=== PATIENT | male | born 1935 | race Caucasian/White ===

== ENCOUNTER 2018-02-06 08:07 | Emergency (ER) | payer MEDICARE, BC ==
[~2018-02-06] VITALS: Ht 185.4 cm; Wt 105.0 kg
[~2018-02-06 08:07] MED LIST: ALLO300T8 PO; BACL10TA PO; CLOP75TA35 PO; FLEC50TA PO; HYDR-4353 PO; OMEP20TA5 PO; TEMA30CA5 PO
[2018-02-06 09:14] LABS: BASOPHILS # (AUTO) 0.1 X10'3 (0-0.2); BASOPHILS % (AUTO) 0.9 % (0-1); EOSINOPHILS # (AUTO) 0.3 X10'3 (0-0.9); HEMATOCRIT 39.7 % (42.0-52.0); HEMOGLOBIN 13.3 g/dl (14.0-17.9); LYMPHOCYTES # (AUTO) 1.4 X10'3 (1.1-4.8); LYMPHOCYTES % (AUTO) 21.8 % (21-51); MEAN CORPUSCULAR HEMOGLOBIN 30.2 PG (27.0-31.0); MEAN CORPUSCULAR HGB CONC 33.4 % (33.0-36.5); MEAN CORPUSCULAR VOLUME 90.2 FL (78-98); MEAN PLATELET VOLUME 8.5 FL (7.4-10.4); MONOCYTES # (AUTO) 0.4 X10'3 (0-0.9); MONOCYTES % (AUTO) 6.8 % (2-12); NEUTROPHILS # (AUTO) 4.1 X10'3 (1.8-7.7); NEUTROPHILS % (AUTO) 65.5 % (42-75); PLATELET COUNT 247 X10'3 (140-440); RED CELL DISTRIBUTION WIDTH 14.3 % (11.5-14.5); WHITE BLOOD COUNT 6.3 X10'3 (4.5-11.0)
[2018-02-06 09:27] LABS: ALANINE AMINOTRANSFERASE 29 U/L (12-78); ALBUMIN 3.5 G/DL (3.4-5.0); ALBUMIN/GLOBULIN RATIO 1.2 (1.1-1.5); ALKALINE PHOSPHATASE 106 IU/L (46-116); ANION GAP 6 (8-16); ASPARTATE AMINO TRANSFERASE 19 U/L (10-37); BILIRUBIN,TOTAL 0.3 MG/DL (0.1-1.0); BLOOD UREA NITROGEN 16 MG/DL (7-18); BUN/CREATININE RATIO 16.2 (5.4-32.0); CALCIUM 9.3 MG/DL (8.5-10.1); CHLORIDE 105 MMOL/L (99-107); CREATININE 0.99 MG/DL (0.60-1.10); GLUCOSE 98 MG/DL (70-104); MAGNESIUM 1.8 MG/DL (1.5-2.4); POTASSIUM 4.2 MMOL/L (3.5-5.1); SODIUM 138 MMOL/L (135-145); TOTAL CARBON DIOXIDE 27.2 MMOL/L (24-32); TOTAL PROTEIN 6.5 G/DL (6.4-8.2); eGFR 73 ML/MIN
[2018-02-06 09:43] VITALS: BP 156/73
== END 2018-02-06 10:57 | disposition home or self-care (01) ==
LOC: ER 08:07
DX: R20.2 Paresthesia of skin (principal); F41.9 Anxiety disorder, unspecified; K21.9 Gastro-esophageal reflux disease without esophagitis; G89.29 Other chronic pain; Z86.73 Personal history of transient ischemic attack (TIA), and cerebral infarction without residual deficits; Z95.0 Presence of cardiac pacemaker; Z98.890 Other specified postprocedural states; Z60.2 Problems related to living alone; Z79.01 Long term (current) use of anticoagulants; Z79.899 Other long term (current) drug therapy
CPT/HCPCS: 36415; 71045; 80053; 83735; 84484; 85025; 93005; 99284

== ENCOUNTER 2018-02-13 09:34 | Emergency (ER) | payer MEDICARE, BC ==
[~2018-02-13] VITALS: Ht 185.4 cm; Wt 89.0 kg
[2018-02-13 09:42] VITALS: BP 162/74
== END 2018-02-13 10:15 | disposition home or self-care (01) ==
LOC: ER 09:35
DX: T39.011A Poisoning by aspirin, accidental (unintentional), initial encounter (principal); R53.1 Weakness; R20.2 Paresthesia of skin; K21.9 Gastro-esophageal reflux disease without esophagitis; G89.29 Other chronic pain; Z86.73 Personal history of transient ischemic attack (TIA), and cerebral infarction without residual deficits; Z95.0 Presence of cardiac pacemaker; Z98.890 Other specified postprocedural states; Z79.899 Other long term (current) drug therapy; Z60.2 Problems related to living alone; Y92.89 Other specified places as the place of occurrence of the external cause
CPT/HCPCS: 99281

== ENCOUNTER 2019-09-26 09:13 | Inpatient (IN) | payer MEDICARE, BC ==
[2019-09-18 11:33] LABS: BASOPHILS # (AUTO) 0.1 X10'3 (0-0.2); BASOPHILS % (AUTO) 0.9 % (0-1); EOSINOPHILS # (AUTO) 0.2 X10'3 (0-0.9); EOSINOPHILS % (AUTO) 2.4 % (0-6); LYMPHOCYTES # (AUTO) 1.2 X10'3 (1.1-4.8); LYMPHOCYTES % (AUTO) 16.1 % (21-51); MEAN CORPUSCULAR HEMOGLOBIN 29.9 PG (27.0-31.0); MEAN CORPUSCULAR HGB CONC 33.9 g/dL (33.0-36.5); MEAN PLATELET VOLUME 8.1 FL (7.4-10.4); MONOCYTES # (AUTO) 0.5 X10'3 (0-0.9); MONOCYTES % (AUTO) 6.3 % (2-12); NEUTROPHILS # (AUTO) 5.7 X10'3 (1.8-7.7); NEUTROPHILS % (AUTO) 74.3 % (42-75); PRE OP HEMATOCRIT 40.8 % (42.0-52.0); PRE OP HEMOGLOBIN 13.9 g/dL (14.0-17.9); PRE OP PLATELET COUNT 254 X10'3 (140-440); RED BLOOD COUNT 4.64 X10'6 (4.70-6.10); RED CELL DISTRIBUTION WIDTH 14.1 % (11.5-14.5)
[2019-09-18 11:46] LABS: PRE OP PROTIME 10.3 SECONDS (9.0-12.0)
[2019-09-18 11:50] LABS: ALBUMIN 3.4 G/DL (3.4-5.0); ALBUMIN/GLOBULIN RATIO 0.9 (1.1-1.5); ALKALINE PHOSPHATASE 104 IU/L (46-116); BLOOD UREA NITROGEN 12 MG/DL (7-18); BUN/CREATININE RATIO 10.6 (5.4-32.0); CALCIUM 9.2 MG/DL (8.5-10.1); CHLORIDE 109 MMOL/L (99-107); CREATININE 1.13 MG/DL (0.60-1.10); PRE OP ALT 19 U/L (30-65); PRE OP ANION GAP 8 (8-16); PRE OP AST 15 U/L (10-37); PRE OP BILIRUB, TOTAL 0.5 MG/DL (0.0-1.0); PRE OP GLUCOSE 89 MG/DL (70-104); PRE OP POTASSIUM 4.6 MMOL/L (3.4-5.1); PRE OP SODIUM 144 MMOL/L (135-145); TOTAL CARBON DIOXIDE 27.5 MMOL/L (24-32); eGFR 62 ML/MIN
[~2019-09-26] VITALS: Ht 182.9 cm; Wt 103.9 kg
[2019-09-26] VITALS (18 sets, daily range): BP systolic 96–164; BP diastolic 53–84
[~2019-09-26 09:13] MED LIST changes: -ALLO300T8 PO; +ASPI-1094 PO; -BACL10TA PO; -CLOP75TA35 PO; -HYDR-4353 PO; -OMEP20TA5 PO; +VANCOMYCIN 1,500MG inj. 1,500 MG in normal saline 500ml IV soln 500 ML IV ONE; +ceFAZolin 2gm in dextrose, iso 50 ML IV ONE; +famotidine 20mg tablet PO ONE; +ringers solution, lacted 1,000 ML IV SCH; +tranexamic acid inj. 1,000 MG in normal saline 100 ML IV ONE
[2019-09-26] MEDS ORDERED: ketorolac trometh. 30mg/ml inj. ONE (14:25)
[2019-09-26] MEDS ORDERED: ROPIVAcaine 0.5% (5mg/ml) 30ml vial ONE ×2 (14:25→14:51)
[2019-09-26] MEDS ORDERED: fentaNYL/PF 50MCG/1 ML 2ML syringe ONE (14:50)
[2019-09-26] MEDS ORDERED: propofol inj 20 ML IV ONE (14:50)
[2019-09-26] MEDS ORDERED: MIDAZolam 5mg/5ml vial ONE (14:50)
[2019-09-26] MEDS ORDERED: sevoflurane 250ml liquid IH ONE (14:57)
[2019-09-26] MEDS ORDERED: tranexamic acid inj. 1,000 MG in normal saline 100 ML IV ONE (15:45)
[2019-09-26] MEDS ORDERED: ringers solution, lacted 1,000 ML IV SCH (16:17)
[2019-09-26] MEDS ORDERED: morphine 4 MG/ML inj SYRINge IV PRN (16:20)
[2019-09-26] MEDS ORDERED: ROPIVAcaine 0.2% (10 MG/5 ML) BOLUS INJECTION INTERSCALE PRN (16:20)
[2019-09-26] MEDS ORDERED: morphine 2 MG/ML inj. syringe IV PRN (16:20)
[2019-09-26] MEDS ORDERED: proCHLORperazine 10 MG/2 ml inj IV PRN (16:20)
[2019-09-26] MEDS ORDERED: meperidine/PF 25mg/ml syringe IV PRN ×3 (16:20)
[2019-09-26] MEDS ORDERED: ondansetron/PF 4mg/2ml inj IV PRN ×2 (16:20→17:55)
--- NOTE | 2019-09-26 17:35 | NUR ---
Received from OR via BED, accompanied by Anesthesiologist BELKIS and report given by Anesthesiolgist. PT SLEEPY, OXYGENATING WELL ON 10 LPM 02 VIA MASK, NO RESP DISTRESS NOTED. PT DENIES NAUSEA OR PAIN AT THIS TIME, HAS R ISB AND ON-Q INFUSION IS HOOKED UP PER ORDERS. DSG TO R SHOULDER CDI. SHOULDER WRAP AND POWDER PACK IN PLACE. RUE IN SLING. RADIAL PULSES PALP. SCDS ON, VSS.
[2019-09-26] MEDS ORDERED: TEMAZEPAM 15 MG PO PRN (17:55)
[2019-09-26] MEDS ORDERED: HYDROmorphone inj. 0.5 MG/0.5 ML DISP.SYRIN IV PRN (17:55)
[2019-09-26] MEDS ORDERED: magnesium hydroxide 30ml (MOM) UD suspension PO PRN (17:55)
[2019-09-26] MEDS ORDERED: bisacodyl 10mg suppository rectal RC PRN (17:55)
[2019-09-26] MEDS ORDERED: HYDROmorphone 1 mg/ml syringe IV PRN (17:55)
[2019-09-26] MEDS ORDERED: acetaminophen 325mg tablet PO PRN (17:55)
[2019-09-26] MEDS ORDERED: diphenhydrAMINE 25mg capsule PO PRN ×2 (17:55)
[2019-09-26] MEDS: ROPIVAcaine 0.2%/PF PUMP/bolus 550 ML INTERSCALE SCH (18:17)
--- NOTE | 2019-09-26 19:15 | NUR ---
Report called to receiving nurse. Transferred via BED Belongings WITH PT, FULL DENTURES, GLASSES, 2 BAGS OF CLOTHING. VSS. TOLERATING PO FLUIDS WELL. NO C/O PAIN. TRANSFERRED TO ORTHO IN STABLE CONDITION. Special Issues communicated to receiving nurse.
--- NOTE | 2019-09-26 19:15 | NUR ---
RECEIVED PATIENT INTO ROOM 4007 AND ASSUMED PATIENT CARE. IN STABLE CONDITION.
[2019-09-26] MEDS: acetaminophen 325mg tablet PO SCH (20:00)
[2019-09-26] MEDS ORDERED: vancomycin/NS 1 GM ADD-VANTAGE 250 ML IV SCH (20:00)
[2019-09-26] MEDS ORDERED: temazepam 15mg capsule PO PRN (20:16)
[2019-09-26] MEDS ORDERED: tranexamic acid 1gm/0.7% sal. 100 ML IV ONE (21:00)
[2019-09-26] MEDS: flecainide 50mg tablet PO SCH (22:05)
[2019-09-26] MEDS: sennosides 8.6mg tablet PO SCH (22:05)
[2019-09-26] MEDS: potassium cl 20mEq in 1/2 NS 1,000 ML IV SCH (22:13)
[2019-09-27] MEDS: ceFAZolin 1GM/D5W- ADD-VANTAGE 50 ML IV SCH ×2 (00:53→07:35)
[2019-09-27] MEDS: acetaminophen 325mg tablet PO SCH ×5 (02:00→20:00)
[2019-09-27] MEDS: potassium cl 20mEq in 1/2 NS 1,000 ML IV SCH (05:25)
[2019-09-27 06:00] VITALS: BP 134/52
--- NOTE | 2019-09-27 06:00 | NUR ---
Patient in room ORTHO 4007. I have received report from Marti URIAS and had the opportunity to ask questions and assume patient care.
--- NOTE | 2019-09-27 06:34 | NUR ---
REPORT GIVEN TO YANA URIAS
[2019-09-27 06:47] LABS: BASOPHILS % (AUTO) 0.4 % (0-1); EOSINOPHILS # (AUTO) 0.1 X10'3 (0-0.9); EOSINOPHILS % (AUTO) 0.9 % (0-6); HEMATOCRIT 38.5 % (42.0-52.0); HEMOGLOBIN 12.9 g/dl (14.0-17.9); LYMPHOCYTES # (AUTO) 0.9 X10'3 (1.1-4.8); LYMPHOCYTES % (AUTO) 9.9 % (21-51); MEAN CORPUSCULAR HEMOGLOBIN 29.7 PG (27.0-31.0); MEAN CORPUSCULAR HGB CONC 33.5 g/dL (33.0-36.5); MEAN CORPUSCULAR VOLUME 88.9 FL (78-98); MEAN PLATELET VOLUME 8.3 FL (7.4-10.4); MONOCYTES # (AUTO) 0.6 X10'3 (0-0.9); MONOCYTES % (AUTO) 6.6 % (2-12); NEUTROPHILS # (AUTO) 7.8 X10'3 (1.8-7.7); NEUTROPHILS % (AUTO) 82.2 % (42-75); PLATELET COUNT 182 X10'3 (140-440); RED BLOOD COUNT 4.33 X10'6 (4.70-6.10); RED CELL DISTRIBUTION WIDTH 13.8 % (11.5-14.5); WHITE BLOOD COUNT 9.5 X10'3 (4.5-11.0)
[2019-09-27 07:03] LABS: ANION GAP 7 (8-16); CHLORIDE 109 MMOL/L (99-107); POTASSIUM 4.4 MMOL/L (3.5-5.1); SODIUM 142 MMOL/L (135-145); TOTAL CARBON DIOXIDE 25.9 MMOL/L (24-32)
[2019-09-27] MEDS: aspirin 325mg tablet, delayed-release (Ecotrin) PO SCH (07:33)
[2019-09-27] MEDS: oxyCODONE IR 5mg (immed. release) tablet PO PRN ×4 (07:34→22:27)
[2019-09-27] MEDS: flecainide 50mg tablet PO SCH ×2 (07:34→19:21)
[2019-09-27 10:00] VITALS: BP 138/53
[2019-09-27 14:00] VITALS: BP 123/67
--- NOTE | 2019-09-27 15:38 | NUR ---
Joint replacement Consult: Pt seen by RD for written/verbal high protein ed w/ RD contact information provided. Pt is agreeable to [facility]INE[facility] for wound healing needs; SINGLE ENDING MACHINE OPERATOR notified. PO 75% avg initial regular diet meals. Will continue to monitor. Addendum: 09/27/19 at [address] Amended: Links added.
[2019-09-27 18:00] VITALS: BP 116/56
--- NOTE | 2019-09-27 18:15 | NUR ---
Patient in room ORTHO 4007. I have received report from Wen URIAS and had the opportunity to ask questions and assume patient care.
[2019-09-27] MEDS: sennosides 8.6mg tablet PO SCH (19:21)
[2019-09-27 22:11] VITALS: BP 141/60
[2019-09-28] MEDS: acetaminophen 325mg tablet PO SCH ×3 (02:00→14:00)
--- NOTE | 2019-09-28 02:40 | NUR ---
Problems reprioritized. Patient report given, questions answered & plan of care reviewed with Rosalia URIAS.
[2019-09-28 06:00] VITALS: BP 121/60
[2019-09-28 06:10] LABS: BASOPHILS % (AUTO) 0.4 % (0-1); EOSINOPHILS # (AUTO) 0.1 X10'3 (0-0.9); HEMATOCRIT 35.6 % (42.0-52.0); HEMOGLOBIN 12.1 g/dl (14.0-17.9); LYMPHOCYTES % (AUTO) 10.7 % (21-51); MEAN CORPUSCULAR HEMOGLOBIN 30.2 PG (27.0-31.0); MEAN CORPUSCULAR VOLUME 88.8 FL (78-98); MEAN PLATELET VOLUME 8.3 FL (7.4-10.4); MONOCYTES # (AUTO) 0.9 X10'3 (0-0.9); MONOCYTES % (AUTO) 9.1 % (2-12); NEUTROPHILS # (AUTO) 7.5 X10'3 (1.8-7.7); NEUTROPHILS % (AUTO) 78.8 % (42-75); PLATELET COUNT 187 X10'3 (140-440); WHITE BLOOD COUNT 9.5 X10'3 (4.5-11.0)
--- NOTE | 2019-09-28 06:32 | NUR ---
Patient in room ORTHO 4007. I have received report from Rosalia URIAS and had the opportunity to ask questions and assume patient care.
[2019-09-28] MEDS: aspirin 325mg tablet, delayed-release (Ecotrin) PO SCH (07:29)
[2019-09-28] MEDS: flecainide 50mg tablet PO SCH ×2 (07:29→20:50)
[2019-09-28] MEDS: oxyCODONE IR 5mg (immed. release) tablet PO PRN ×2 (07:29→17:14)
[2019-09-28 10:00] VITALS: BP 121/63
[2019-09-28] MEDS: JUVEN Smoothie Arginine/Glut./Ca2+Bmb (Juven 19.3pkt) 240ml cup PO SCH ×2 (12:30→17:30)
[2019-09-28] MEDS ORDERED: ondansetron 4mg rapidly disintigrating tab PO PRN (13:00)
[2019-09-28] MEDS: ROPIVAcaine 0.2%/PF PUMP/bolus 550 ML INTERSCALE SCH ×2 (17:15→19:01)
[2019-09-28] MEDS ORDERED: acetaminophen 325mg tablet PO PRN (17:55)
[2019-09-28 18:00] VITALS: BP 128/53
--- NOTE | 2019-09-28 18:14 | NUR ---
Problems reprioritized. Patient report given, questions answered & plan of care reviewed with Soto URIAS.
--- NOTE | 2019-09-28 18:50 | NUR ---
Patient in room ORTHO 4007. I have received report from BRIDGETT Carver and had the opportunity to ask questions and assume patient care.
[2019-09-28] MEDS: sennosides 8.6mg tablet PO SCH (20:51)
[2019-09-28 23:06] VITALS: BP 132/71
[2019-09-29] MEDS: oxyCODONE IR 5mg (immed. release) tablet PO PRN ×2 (00:02→08:46)
[2019-09-29 06:00] VITALS: BP 123/78
[2019-09-29 06:27] LABS: BASOPHILS % (AUTO) 0.5 % (0-1); EOSINOPHILS # (AUTO) 0.2 X10'3 (0-0.9); EOSINOPHILS % (AUTO) 2.5 % (0-6); HEMATOCRIT 33.3 % (42.0-52.0); HEMOGLOBIN 11.4 g/dl (14.0-17.9); LYMPHOCYTES # (AUTO) 1.2 X10'3 (1.1-4.8); LYMPHOCYTES % (AUTO) 13.6 % (21-51); MEAN CORPUSCULAR HEMOGLOBIN 30.1 PG (27.0-31.0); MEAN CORPUSCULAR HGB CONC 34.1 g/dL (33.0-36.5); MEAN CORPUSCULAR VOLUME 88.4 FL (78-98); MEAN PLATELET VOLUME 8.5 FL (7.4-10.4); MONOCYTES # (AUTO) 0.8 X10'3 (0-0.9); MONOCYTES % (AUTO) 9.3 % (2-12); NEUTROPHILS # (AUTO) 6.3 X10'3 (1.8-7.7); NEUTROPHILS % (AUTO) 74.1 % (42-75); PLATELET COUNT 184 X10'3 (140-440); RED BLOOD COUNT 3.77 X10'6 (4.70-6.10); RED CELL DISTRIBUTION WIDTH 14.1 % (11.5-14.5); WHITE BLOOD COUNT 8.5 X10'3 (4.5-11.0)
--- NOTE | 2019-09-29 06:35 | NUR ---
Problems reprioritized. Patient report given, questions answered & plan of care reviewed with BRIDGETT Beach.
--- NOTE | 2019-09-29 06:36 | NUR ---
Patient in room ORTHO 4007. I have received report from BRIDGETT Valera and had the opportunity to ask questions and assume patient care.
[2019-09-29] MEDS: flecainide 50mg tablet PO SCH (07:32)
[2019-09-29] MEDS: aspirin 325mg tablet, delayed-release (Ecotrin) PO SCH (07:33)
[2019-09-29 09:35] VITALS: BP 146/56
--- NOTE | 2019-09-29 12:44 | NUR ---
[facility] picked up patient to go to [facility]. Stable for transfer per Dr Gaytan. Called report to BRIDGETT Bruno. Left with belongings in a wheel-chair.
== END 2019-09-29 12:41 | DRG 483 ==
LOC: PAS IN 09:13 → UNDOADMIN 09:13 → EDSTATUS 12:15 → PAS IN 17:51 → UNDOADMIN 17:51 → ORTHO 4S 17:51 → PAS IN 19:15
PROVIDERS: ADMIT Orthopaedic Surgery; ATTEND Orthopaedic Surgery
PROC: 0RRJ00Z Replacement of Right Shoulder Joint with Reverse Ball and Socket Synthetic Substitute, Open Approach (ICD-10-PCS; 2019-09-26)
PROC: 3E0T3BZ Introduction of Anesthetic Agent into Peripheral Nerves and Plexi, Percutaneous Approach (ICD-10-PCS; 2019-09-26)
PROC: 0LS30ZZ Reposition Right Upper Arm Tendon, Open Approach (ICD-10-PCS; principal; 2019-09-26 14:57)
DX: M19.011 Primary osteoarthritis, right shoulder (principal); F84.5 Asperger's syndrome; D62 Acute posthemorrhagic anemia; M75.121 Complete rotator cuff tear or rupture of right shoulder, not specified as traumatic; M65.9 Synovitis and tenosynovitis, unspecified; N40.0 Benign prostatic hyperplasia without lower urinary tract symptoms; I49.9 Cardiac arrhythmia, unspecified; G47.00 Insomnia, unspecified; M75.100 Unspecified rotator cuff tear or rupture of unspecified shoulder, not specified as traumatic; Z85.46 Personal history of malignant neoplasm of prostate; Z79.899 Other long term (current) drug therapy; Z95.0 Presence of cardiac pacemaker; Z98.1 Arthrodesis status; Z86.73 Personal history of transient ischemic attack (TIA), and cerebral infarction without residual deficits
CPT/HCPCS: 36415; 71046; 80051; 80053; 82948; 85025; 85610; 85730; 87081; 97110; 97116; 97161; 97530; A4565; A4618; A7000; C1776; G0378; J0690; J1885; J2250; J2704; J2795; J3010; J3370; J3480; J7040; J7120

== ENCOUNTER 2024-08-01 15:46 | Inpatient (IN) | payer MEDICARE, BC ==
[~2024-08-01] VITALS: Ht 182.9 cm; Wt 104.3 kg
[~2024-08-01 15:46] MED LIST changes: -VANCOMYCIN 1,500MG inj. 1,500 MG in normal saline 500ml IV soln 500 ML IV ONE; -ceFAZolin 2gm in dextrose, iso 50 ML IV ONE; -famotidine 20mg tablet PO ONE; -ringers solution, lacted 1,000 ML IV SCH; -tranexamic acid inj. 1,000 MG in normal saline 100 ML IV ONE
--- NOTE | 2024-08-01 18:13 | Physician Documentation ---
History of Present Illness ~ Chief Complaint: Seizure Stated Complaint: NEURO CONSULT Time Seen by MD: 18:03 Primary Medical Doctor: KIERRA GALLEGOS Patient presents to the emergency room as a transfer [facility] for new onset of seizure. History of dementia. He was seen by neurologist at the time who felt he needed an MRI however their facility did not have an MRI compatible MRI machine. He is a full code. Labs thus far reassuring however urine was not obtained. Currently the patient is pleasantly demented and not helpful with the history. Per records sent there was a very distant history of seizure many years ago. He does not take seizure medications. Medication Reconciliation Allergies: Coded Allergies: No Known Allergies (Unverified , 08/01/24) Scheduled Aspirin (Ecotrin), 325 MG PO DAILY, (Reported) Flecainide Acetate (Flecainide Acetate), 1 TAB PO BID, (Reported) Scheduled PRN Temazepam* (Restoril*), 15 MG PO HS PRN for PRN, (Reported) Past Medical History Past Medical History: CVA/TIA/Stroke, GERD, Peptic Ulcer Disease, Chronic Back Pain, Depression Past Surgical History: orthopedic surgeries, pacemaker Alcohol Use: None Drug Use: none Lives with: Alone Lives In: Home Occupation: retired Review of Systems ROS All review of systems negative except as per HPI Physical Exam Vital Signs: Temperature: 97.6, Source: Temporal, Heart Rate: 60, Respiratory Rate: 15, BP: 137/62, Pulse Oximetry: 100, Weight: 104.300 Physical Exam General: Patient is awake, alert, cooperative and pleasantly demented Head: Normocephalic and atraumatic. Eyes: Conjunctival normal. EOMI. PERRL. ENT: Mucous membranes moist. Neck: Supple, trachea is midline. Chest: Clear to auscultation bilaterally without rales, rhonchi, or wheezes. There is no accessory muscle use or retractions. Cardiac: RRR without murmurs, gallops, or rubs. Neuro: Cranial nerves II-XII grossly intact. No focal neuro deficits. Progress Results/Orders Results/Orders Orders - SHER FALLON MD Page Hospitalist (08/01/24 18:48) Fill Out Med Reconciliation (08/01/24 18:48) Vital Signs 08/01/24 08/01/2408/01/25 16:12 16:50 18:24 Temp 97.6 Pulse 60 60 Resp 18 15 15 B/P (MAP) 142/72 137/62 (87) Pulse Ox 96 100 Laboratory Tests Test 08/01/24 18:06 08/01/24 18:18 Urine Specimen Description Urinal Urine Color Yellow Urine Clarity Slightly cloudy Urine pH 6.5 Urine Specific [place] <=1.005 Urine Protein Negative Urine Glucose (UA) Negative Urine Ketones Negative Urine Occult Blood Negative Urine Nitrite Negative Urine Bilirubin Negative Urine Urobilinogen 0.2 Urine Leukocyte Esterase Negative Urine RBC 0-2 Urine WBC None seen Urine Squamous Epithelial Cells Few Urine Amorphous Phosphates 3+ Urine Bacteria 2+ Urine Culture Indicated Not ind Volume Urine Centrifuged 10 ml Urine Comment White Blood Count 8.9 Red Blood Count 4.36 L Hemoglobin 12.7 L Hematocrit 37.7 L Mean Corpuscular Volume 86.4 Mean Corpuscular Hemoglobin 29.1 Mean Corpuscular Hemoglobin Concent 33.6 Red Cell Distribution Width 15.3 H Platelet Count 239 Mean Platelet Volume 8.5 Neutrophils (%) (Auto) 67.9 Lymphocytes (%) (Auto) 22.3 Monocytes (%) (Auto) 7.1 Eosinophils (%) (Auto) 1.8 Basophils (%) (Auto) 0.9 Neutrophils # (Auto) 6.0 Lymphocytes # (Auto) 2.0 Monocytes # (Auto) 0.6 Eosinophils # (Auto) 0.2 Basophils # (Auto) 0.1 CBC Comment Medical Decision Making Findings Patient presents to the emergency room as a transfer for new onset seizure. Patient will requiring MRI. We will admit for further investigation. No seiz ure activity in our emergency room. Departure Admitted to Inpatient Unit: yes, to hospitalist Impression: Primary Impression: Convulsions Condition: Fair Referrals: NO PRIMARY CARE PROVIDER (PCP) Signature Scribe Signature: No scribe Attestation: The note accurately reflects work and decisions made by me.Sher Fallon MD 08/01/24 18:44 SHER FALLON MD August 01, 2024 18:12
[2024-08-01 18:17] LABS: BILIRUBIN,URINE NEGATIVE (Neg); CLARITY,URINE SLIGHTLY CLOUDY (Clear); COLOR,URINE YELLOW (Yellow); GLUCOSE, URINE NEGATIVE (Neg); KETONES,URINE NEGATIVE (Neg); LEUKOCYTE ESTERASE ,URINE NEGATIVE (Neg); NITRITES, URINE NEGATIVE (Neg); OCCULT BLOOD,URINE NEGATIVE (Neg); PH,URINE 6.5 (4.8-8.0); PROTEIN,URINE NEGATIVE (Neg); UROBILINOGEN,URINE 0.2 E.U/dL (0.2-1.0)
[2024-08-01 18:20] LABS: UA COLLECTION TYPE URINAL
[2024-08-01 18:29] LABS: BACTERIA,URINE 2+ /HPF (Neg); RBC,URINE 0-2 /HPF (0-2); WBC,URINE NONE SEEN /HPF (0-4)
[2024-08-01 18:30] LABS: AMORPHOUS PHOSPHATES 3+; SQUAMOUS EPITHELIAL CELL,UR FEW /LPF (FEW)
[2024-08-01 18:34] LABS: BASOPHILS # (AUTO) 0.1 X10'3 (0-0.2); BASOPHILS % (AUTO) 0.9 % (0-1); EOSINOPHILS # (AUTO) 0.2 X10'3 (0-0.9); EOSINOPHILS % (AUTO) 1.8 % (0-6); HEMATOCRIT 37.7 % (42.0-52.0); HEMOGLOBIN 12.7 g/dl (14.0-17.9); LYMPHOCYTES % (AUTO) 22.3 % (21-51); MEAN CORPUSCULAR HEMOGLOBIN 29.1 PG (27.0-31.0); MEAN CORPUSCULAR HGB CONC 33.6 g/dL (33.0-36.5); MEAN CORPUSCULAR VOLUME 86.4 FL (78-98); MEAN PLATELET VOLUME 8.5 FL (7.4-10.4); MONOCYTES # (AUTO) 0.6 X10'3 (0-0.9); MONOCYTES % (AUTO) 7.1 % (2-12); NEUTROPHILS % (AUTO) 67.9 % (42-75); PLATELET COUNT 239 X10'3 (140-440); RED BLOOD COUNT 4.36 X10'6 (4.70-6.10); RED CELL DISTRIBUTION WIDTH 15.3 % (11.5-14.5); WHITE BLOOD COUNT 8.9 X10'3 (4.5-11.0)
[2024-08-01] MEDS ORDERED: METO-395 PO (20:36)
[2024-08-01] MEDS ORDERED: ACET-1015 PO (20:36)
[2024-08-01] MEDS ORDERED: ASPI81TA52 PO (20:36)
[2024-08-01] MEDS ORDERED: LORA-268 PO (20:36)
[2024-08-01] MEDS ORDERED: HYDR-3686 PO (20:36)
[2024-08-01] MEDS ORDERED: FURO-150 PO (20:36)
[2024-08-01] MEDS ORDERED: DONE-46 PO (20:36)
[2024-08-01] MEDS ORDERED: BISA10SU11 RC (20:36)
[2024-08-01] MEDS ORDERED: APIX5TAB3 PO (20:36)
[2024-08-01] MEDS ORDERED: ATOR40TA PO (20:36)
[2024-08-01] MEDS ORDERED: magnesium sulf-water 4G/100mL 100 ML IV PRN (21:25)
[2024-08-01] MEDS ORDERED: magnesium Cl slow-release 64mg tablet PO PRN (21:25)
[2024-08-01] MEDS ORDERED: ondansetron/PF 4mg/2ml inj IV PRN (21:25)
[2024-08-01] MEDS ORDERED: mag hydrox/Alum hydrox/simeth 30ml oral suspension PO PRN (21:25)
[2024-08-01] MEDS ORDERED: potassium Cl 40MEQ/1/2NS 520ml 520 ML IV PRN (21:25)
[2024-08-01] MEDS ORDERED: acetaminophen 325mg tablet PO PRN (21:25)
[2024-08-01] MEDS ORDERED: magnesium hydroxide 30ml (MOM) UD suspension PO PRN (21:25)
[2024-08-01] MEDS ORDERED: magnesium sulf-water 2g/50mL 50 ML IV PRN (21:25)
[2024-08-01] MEDS ORDERED: potassium Cl 20 mEq SR tablet PO PRN ×2 (21:25)
--- NOTE | 2024-08-01 21:41 | HISTORY AND PHYSICAL-Residence ---
History & Physical Providers to CC Resident Creating Document: EUGENIE CHAMPION, RES ~ History of Present Illness Primary Medical Doctor: KIERRA Reason for Admit\Complaint: Seizures History of Present Illness The patient is an 88-year-old male with past medical history of diabetes mellitus, AFib, pacemaker, CHF, dementia, prostate cancer, who is a resident of long-term facility, was transferred from [facility] for the requirement of MRI. The patient has dementia and unable to give any sort of history. As per the records from [facility], patient is normally alert and oriented x2, arrived to the ED with A&O x 0. SNF staff reported that they were called into his room for seizure-like activity. It was also reported that the patient had an episode of urinary incontinence during the seizure-like episode. No known trauma or falls, no reported fevers or headache or neck pain. Labs at [facility]: WBC 8.7, hemoglobin 12.3, platelets 223, sodium 139, potassium 4.6, bicarb 25, glucose 82, creatinine 0.90, BUN 23, calcium 8.7, magnesium 1.9, normal AST ALT and ALP, lactic acid 3.20, TSH 8.07, free T4 0.76, CK 69, ammonia 33 Normal troponins Elevated PT 15.3 Imaging: X-ray chest- No acute cardiopulmonary disease. CTA head and neck with contrast- There is no hemodynamically significant lesion in the carotid, vertebral or [id number] arteries. Mild periventricular white matter disease is not specific but compatible with chronic microangiopathy. Old lacunar infarct at the right caudate head nucleus. CT head stroke protocol: No acute intracranial abnormalities are identified. Mild periventricular white matter disease is nonspecific but compatible with chronic microangiopathy. Small old lacunar infarct at right caudate head nucleus. Course at [facility]: Patient received IV fluids and 20 cc/kg Keppra load for symptomatic relief. Neurology consultation- Urine toxicology, CK, procalcitonin, prolactin, CBC, CMP, TSH, T3/T4, MRI brain c/s contrast, LP if meningeal signs on examination or no other etiology found, neuro checks, re-consult for decision on skilled nursing seizure medication requirement. Start Keppra 500 mg q.12 hours. Ativan 2 mg IV p.r.n. for breakthrough seizures. DMV notification. 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 Patient transferred to [facility] for pacemaker compatible MRI and EEG. Allergies: Coded Allergies: No Known Allergies (Unverified , 08/01/24) Home Medications Home Medications Active Reported Metoprolol Succinate 25 Mg Tab.sr.24h 1 Tab PO DAILY 30 Days Ativan (Lorazepam) 0.5 Mg Tablet 1 Tab PO Q12H PRN PRN 30 Days Atarax* (Hydroxyzine HCl) 25 Mg Tablet 1 Tab PO Q6H PRN Lasix* (Furosemide) 20 Mg Tablet 1 Tab PO DAILY 30 Days Donepezil Hcl 5 Mg Tablet 1 Tab PO HS 30 Days Bisacodyl 10 Mg Supp.rect 1 Supp RC PRN PRN 4 Days Lipitor* (Atorvastatin Calcium) 40 Mg Tablet 1 Tab PO HS 30 Days Aspirin EC (Aspirin) 81 Mg Tablet.dr 1 Tab PO DAILY 30 Days Eliquis (Apixaban) 5 Mg Tablet 1 Tab PO Q12H 30 Days Acetaminophen 500 Mg Tablet 2 Tab PO Q12H PRN 15 Days Past Medical History Past Medical History Diabetes mellitus type 2 CHF Atrial fibrillation Pacemaker Dementia Remote history of seizures Prostate cancer anxiety Past Surgical History Surgical History Comment Unknown Past Social History Social History Comment Patient is a resident of long-term facility. [place] [facility]. Usually A&O x2. Full code as per records. Former smoker. Smoking: Non-Smoker Alcohol Use: None Drug Use: None Lives with: Alone Lives In: Home Occupation: retired ROS ROS Unable to obtain because of patient's condition Exam Vitals: Vital Signs Date Time Temp Pulse Resp B/P (MAP) Pulse Ox O2 Delivery O2 Flow Rate FiO2 08/01/24 18:24 15 08/01/24 16:50 60 100 08/01/24 16:12 97.6 General: Elderly male, alert and not oriented, lethargic, not in acute distress Head: Normocephalic with an atraumatic Eyes: Pupils- 3mm, reacting to light, conjunctiva- anicteric Nose and throat: No polyps, septum- normal, no mucosal ulcers Neck: Supple, no lymphadenopathy, no carotid bruit Respiratory: No use of accessory muscles of respiration, Bilateral normal vesicular breath sounds heard. No wheeze, rhochi or creps Cardiac: S1-S2 heard, rhythm regular, no gallop/murmur Abdomen: non distended, no tenderness, no organomegaly, bowel sounds - heard Extremities: no clubbing, no pedal edema, no deformities, peripheral pulses - 2+ Skin: warm and dry, no rash, no purpura Neuro: Unable to examine, able to move all four extremities Diagnostic Data Last Recorded Lab Results: 08/01/24 1818 Advance Care Planning Advanced Care plannin - 30 Minutes (Full code as per records) Additional Plan An 88-year-old male with past medical history of diabetes mellitus type 2, dementia, atrial fibrillation, CHF, pacemaker, prostate cancer, remote history of seizures, was transferred from [facility] for the management of seizures. He is being admitted into the hospital for further evaluation and management. Plan: Altered mental status Seizures CT head, CTA head and neck done at [facility]. No acute abnormality found. Neurology consultation- Urine toxicology, CK, procalcitonin, prolactin, CBC, CMP, TSH, T3/T4, MRI brain c/s contrast, LP if meningeal signs on examination or no other etiology found, neuro checks, re-consult for decision on long chain beamer seizure medication requirement. Start Keppra 500 mg q.12 hours. Ativan 2 mg IV p.r.n. for breakthrough seizures. DMV notification. Review home medications for any agents that can lower seizure threshold. Follow up with the labs, EEG and MRI. Patient has a pacemaker. It needs to be turned off before MRI. CBC, CMP, CK, free T4 are within normal limits. TSH 8.07. Elevated lactic acid 3.20, follow up with repeat lactic acid. Started the patient on Keppra 500 mg q.12h. IV fluids normal saline at 75 mL/hour. Consider repeat tele neurology consultation after labs and imaging to see if the patient needs to be on long-term seizure medication. Q.4h neuro checks. Continue telemetry monitoring. History of atrial fibrillation Continue flecainide 50 mg q.12h and Eliquis 5 mg q.12h, metoprolol succinate 25 mg once daily. Hyperlipidemia Continue Lipitor 40 mg daily. History of CHF Lasix 20 mg daily. Dementia Donepezil 5 mg held as it could decrease seizure threshold. Diabetes mellitus type 2 No home hypoglycemic agents. Follow up with the HB A1c. Code Status: Full code DVT Prophylaxis: Eliquis Analgesia/Sedation: Acetaminophen Lines/Tubes: PIV Nutrition: Heart healthy diet PT: Ordered Prognosis: Guarded Disposition: We will admit the patient into medical cardozo. Continue neuro checks and monitor for any new episodes of seizures. Ativan for breakthrough seizures. MRI and EEG pending. Eugenie Champion MD Internal Medicine Resident PGY-1 Tele ICU consult and rounding was completed using HIPAA complaint audio-visual aid. I discussed the case with the resident after evaluating the patient and I agree with the assessment and plan and the decision making. Polly Beauchamp MD Critical Care Date of Service: August 01, 2024 Billing Provider: POLLY BEAUCHAMP MD, SOWMYA MANJARI, RES August 01, 2024 21:41 POLLY BEAUCHAMP MD August 01, 2024 23:46
[2024-08-01 21:55] LABS: INR 1.1 INR; PROTHROMBIN TIME 11.4 SECONDS (9.0-12.0)
[2024-08-01 22:04] LABS: ALANINE AMINOTRANSFERASE 23 U/L (12-78); ALBUMIN 2.8 G/DL (3.4-5.0); ALBUMIN/GLOBULIN RATIO 0.8 (1.1-1.5); ALKALINE PHOSPHATASE 120 IU/L (46-116); ANION GAP 6 (8-16); ASPARTATE AMINO TRANSFERASE 23 U/L (10-37); BILIRUBIN,TOTAL 0.5 MG/DL (0.1-1.0); BLOOD UREA NITROGEN 20 MG/DL (7-18); BUN/CREATININE RATIO 21.1 (10.0-20.0); CALCIUM 8.6 MG/DL (8.5-10.1); CHLORIDE 107 MMOL/L (99-107); CREATININE 0.95 MG/DL (0.60-1.10); GLUCOSE 84 MG/DL (70-104); MAGNESIUM 1.9 MG/DL (1.5-2.4); POTASSIUM 4.3 MMOL/L (3.5-5.1); PRO BRAIN NATRIURETIC PEPTIDE 460 PG/ML (0-450); SODIUM 142 MMOL/L (135-145); TOTAL CARBON DIOXIDE 29.3 MMOL/L (24-32); TOTAL PROTEIN 6.2 G/DL (6.4-8.2); eCRCL 61 ML/MIN; eGFR 75 ML/MIN
[2024-08-01] MEDS ORDERED: LORazepam 2 mg/ml vial IV PRN (22:05)
[2024-08-01] MEDS ORDERED: bisacodyl 10mg suppository rectal RC PRN (22:30)
[2024-08-01] MEDS ORDERED: hydrOXYzine 25 MG tablet PO PRN (22:30)
[2024-08-01] MEDS: PERFLUTREN PROTEIN-A MICROSPHR (Optison) 0.22 MG/ML 3ML VIAL IV ONE (22:41)
[2024-08-01 22:47] LABS: URINE AMPHETAMINE SCREEN NEGATIVE (Neg); URINE BARBITUATE SCREEN NEGATIVE (Neg); URINE BENZODIAZEPINES SCREEN NEGATIVE (Neg); URINE CANNABINOID SCREEN NEGATIVE (Neg); URINE COCAINE SCREEN NEGATIVE (Neg); URINE METHADONE SCREEN NEGATIVE (Neg); URINE OPIATE SCREEN NEGATIVE (Neg); URINE PHENCYCLIDINE SCREEN NEGATIVE (Neg)
[2024-08-01] MEDS: levetiracetam 250mg tablet PO SCH (22:48)
--- NOTE | 2024-08-02 | RADIOLOGY REPORT ---
CHEST RADIOGRAPH Indication: Shortness of breath Technique: Single frontal view of the chest was obtained COMPARISON: Chest X-ray 09/18/2019 FINDINGS: Lines and Tubes: Dual-lead pacemaker noted overlying left chest wall. Lungs: Mild pulmonary vascular congestion without evidence of pulmonary edema. Pleura: No effusion.No pneumothorax. Cardiomediastinal contours: Within normal limits. IMPRESSION: Mild pulmonary vascular congestion.
[2024-08-02] MEDS: normal saline 1000ml 1,000 ML IV SCH (00:39)
[2024-08-02 04:48] LABS: BASOPHILS % (AUTO) 0.5 % (0-1); EOSINOPHILS # (AUTO) 0.2 X10'3 (0-0.9); EOSINOPHILS % (AUTO) 2.1 % (0-6); HEMATOCRIT 38.6 % (42.0-52.0); HEMOGLOBIN 12.9 g/dl (14.0-17.9); LYMPHOCYTES # (AUTO) 1.6 X10'3 (1.1-4.8); LYMPHOCYTES % (AUTO) 18.8 % (21-51); MEAN CORPUSCULAR HEMOGLOBIN 29.2 PG (27.0-31.0); MEAN CORPUSCULAR HGB CONC 33.5 g/dL (33.0-36.5); MEAN CORPUSCULAR VOLUME 87.2 FL (78-98); MEAN PLATELET VOLUME 8.3 FL (7.4-10.4); MONOCYTES # (AUTO) 0.7 X10'3 (0-0.9); MONOCYTES % (AUTO) 7.9 % (2-12); NEUTROPHILS % (AUTO) 70.7 % (42-75); PLATELET COUNT 211 X10'3 (140-440); RED BLOOD COUNT 4.42 X10'6 (4.70-6.10); RED CELL DISTRIBUTION WIDTH 15.4 % (11.5-14.5); WHITE BLOOD COUNT 8.5 X10'3 (4.5-11.0)
[2024-08-02 05:04] LABS: ALANINE AMINOTRANSFERASE 22 U/L (12-78); ALBUMIN 2.9 G/DL (3.4-5.0); ALKALINE PHOSPHATASE 118 IU/L (46-116); ANION GAP 5 (8-16); ASPARTATE AMINO TRANSFERASE 18 U/L (10-37); BILIRUBIN,TOTAL 0.5 MG/DL (0.1-1.0); BLOOD UREA NITROGEN 18 MG/DL (7-18); BUN/CREATININE RATIO 19.8 (10.0-20.0); CALCIUM 8.9 MG/DL (8.5-10.1); CHLORIDE 109 MMOL/L (99-107); CREATININE 0.91 MG/DL (0.60-1.10); GLUCOSE 74 MG/DL (70-104); MAGNESIUM 2.1 MG/DL (1.5-2.4); POTASSIUM 4.1 MMOL/L (3.5-5.1); SODIUM 143 MMOL/L (135-145); TOTAL CARBON DIOXIDE 28.7 MMOL/L (24-32); TOTAL PROTEIN 5.9 G/DL (6.4-8.2); eCRCL 64 ML/MIN; eGFR 79 ML/MIN
[2024-08-02 06:00] VITALS: BP 131/41; PULSE 70; RESP 20; TEMP 97.8; O2SAT 90
[2024-08-02 08:00] VITALS: RESP 20; O2SAT 90
[2024-08-02] MEDS: K and/or MAG REPLACEMENT MC SCH (08:00)
[2024-08-02] MEDS ORDERED: heparin, porcine 5000 units/ml vial SQ SCH (08:00)
[2024-08-02] MEDS: apixaban 5mg tablet PO SCH (09:00)
[2024-08-02] MEDS: docusate sod 100mg capsule PO SCH (09:00)
[2024-08-02] MEDS: aspirin 81mg, enteric-coated 1 TAB TABLET.DR PO SCH (09:00)
[2024-08-02] MEDS: metoprolol succinate 25mg (24-HOUR) SR. Tablet PO SCH (09:00)
[2024-08-02 10:00] VITALS: BP 144/63; PULSE 60; RESP 16; TEMP 97.2; O2SAT 95
--- NOTE | 2024-08-02 13:17 | PROGRESS NOTE- Residence ---
Progress Note - Resident Providers to CC Resident Creating Document: WARRENKYLIEDREW RES ~ Antibiotic Timeout Antibiotic Ordered?: No Subjective Seen and examined the patient at bedside. Denied seizures, no new complaints. Signs of memory loss present looks comfortable Objective Vital Signs Date Time Temp Pulse Resp B/P (MAP) Pulse Ox O2 Delivery O2 Flow Rate FiO2 08/02/24 10:00 97.2 60 16 144/63 (90) 95 Room Air 08/02/24 01:20 0.0 Result Diagram: 08/02/2442908/02/24 043 General: Elderly male, awake, responded to verbal commands. not in acute distress Head: Normocephalic with an atraumatic Eyes: Pupils- 3mm, reacting to light, conjunctiva- anicteric Nose and throat: No polyps, septum- normal, no mucosal ulcers Neck: Supple, no lymphadenopathy, no carotid bruit Respiratory: No use of accessory muscles of respiration, Bilateral normal vesicular breath sounds heard. No wheeze, rhochi or creps Cardiac: S1-S2 heard, rhythm regular, no gallop/murmur Abdomen: non distended, no tenderness, no organomegaly, bowel sounds - heard Extremities: no clubbing, no pedal edema, no deformities, peripheral pulses - 2+ Skin: warm and dry, no rash, no purpura Neuro: Unable to examine, able to move all four extremities. Signs of memory loss present Coagulation Studies Laboratory Tests Test 08/01/24 21:36 Prothrombin Time 11.4 SECONDS (9.0-12.0) INR International Normalized Ratio 1.1 INR Coagulation Comments Advance Care Planning Advanced Care plannin - 30 Minutes Assessment Assessment It was disease old male admitted for altered mental status secondary to seizures. Plan Plan Altered mental status 2/[address] head, CTA head and neck done at [facility]. No acute abnormality found. Neurology consultation- Urine toxicology, CK, procalcitonin, prolactin, CBC, CMP, TSH, T3/T4, MRI brain c/s contrast, LP if meningeal signs on examination or no other etiology found, neuro checks, re-consult for decision on terminal clerk seizure medication requirement. Start Keppra 500 mg q.12 hours. Ativan 2 mg IV p.r.n. for breakthrough seizures. DMV notification. Review home medications for any agents that can lower seizure threshold. Follow up with the labs, EEG and MRI. Patient has a pacemaker. It needs to be turned off before MRI. CBC, CMP, CK, free T4 are within normal limits. TSH 8.07. Elevated lactic acid 3.20, follow up with repeat lactic acid. Started the patient on Keppra 500 mg q.12h. IV fluids normal saline at 75 mL/hour. Consider repeat tele neurology consultation after labs and imaging to see if the patient needs to be on long-term seizure medication. Q.4h neuro checks. Continue telemetry monitoring. 08/02/2024: Patient has a pacemaker but we do not know the details of the pacemaker whether it is MRI compatible or not. Per RN, family does not have the details of pacemaker and day lost the information card. Once we decide upon the MRI compatibility of pacemaker then we will proceed with the MRI. EEG is ordered. Lactic acid levels is 1.8. We will continue Keppra 500 mg p.o. b.i.d. q.4h .we will continue q.4h neuro checks and we will continue to monitor telemetry. History of atrial fibrillation Continue flecainide 50 mg q.12h and Eliquis 5 mg q.12h, metoprolol succinate 25 mg once daily. 08/02/2024 - Heart rate is in 60s - we will continue apixaban 5 mg q.12h, metoprolol 25 mg -reported patient was not taking flecainide Hyperlipidemia Continue Lipitor 40 mg daily. History of CHF Held the Lasix We will continue aspirin 81 mg p.o. daily Dementia Donepezil 5 mg held as it could decrease seizure threshold. Diabetes mellitus type 2 No home hypoglycemic agents. Ordered A1c and we will follow up with the results Blood glucose is 74 Code Status: Full code DVT Prophylaxis: Eliquis Lines/Tubes: PIV Nutrition: Heart healthy diet PT: Ordered Prognosis: Guarded Drew Bender resident Date of Service: August 02, 2024 Billing Provider: EPIFANIO MACIAS MD, VENKATESH, BELKIS August 02, 2024 13:17 EPIFANIO MACIAS MD August 02, 2024 17:16
[2024-08-02 16:13] LABS: HEMOGLOBIN A1C 5.2 % (4.5-6.2)
[2024-08-02 18:00] VITALS: BP 143/68; PULSE 64; RESP 16; TEMP 97.6; O2SAT 98
[2024-08-02] MEDS: atorvastatin 20mg tablet PO SCH (19:09)
[2024-08-02 20:00] VITALS: RESP 16; O2SAT 98
--- NOTE | 2024-08-02 20:48 | PROCEDURE NOTE ---
Procedure Note Providers to CC ~ Interpretation: [place] EEG Note # Demographics Type of EEG Read: - Routine EEG - video Patient Location: Inpatient First Name: JEF Last Name: MAGGIE Date of : 1935 Age: 88 Gender: Male Facility: [facility] Time of Initial Page ([place] ): 08/02/2024 13:04 Time of Return Call ([place] Time): 08/02/2024 13:05 # EEG Interpretation Start Time of EEG Read ([place] ): 08/02/2024 13:01 Stop Time of EEG Read ([place] ): 08/02/2024 13:21 Duration: 0h 20m Technical Details: - The EEG electrodes were placed using the standard International 10-20 system of electrode placement. Video and an accessory EKG lead were used during the course of this study. - This study was recorded using the [employer] EEG software Indication: - seizure # Description Photic Stimulation: Performed Phases Captured: - drowsy Symmetry: symmetric Predominant Frequencies: - theta (4-7 Hz) - abundant (50-89%) Superimposed Frequencies: - delta (2-3 Hz) - frequent (10-49%) Amplitude: normal Reactivity: yes Variability: yes Continuity: continuous # Abnormalities Stimulation: - photic stimulation does NOT cause abnormalities Epileptiform Abnormalities: - NOT present Focal Slowing: no Seizure: - NOT present # Impression Impression: abnormal 1. Diffuse Slowing # Clinical Correlation Clinical Correlation: Diffuse slowing is non-specific and may be seen in the setting of diffuse cerebral dysfunction; such as toxic/metabolic/infectious encephalopathy or heavily sedating medication use. # Demographics First Name: JEF Last Name: MAGGIE Facility: [facility] RAGHU SANTIZO MD August 02, 2024 20:48
[2024-08-02] MEDS ORDERED: donepezil 5mg tablet PO SCH (21:00)
[2024-08-02 22:00] VITALS: BP 123/61; PULSE 59; RESP 18; TEMP 97.5; O2SAT 93
[2024-08-03] VITALS (7 sets, daily range): BP systolic 130–150; BP diastolic 55–63; PULSE 18–65; RESP 16–18; TEMP 97.5–98.5; O2SAT 93–98
[2024-08-03 04:56] LABS: BASOPHILS # (AUTO) 0.1 X10'3 (0-0.2); EOSINOPHILS # (AUTO) 0.2 X10'3 (0-0.9); EOSINOPHILS % (AUTO) 3.2 % (0-6); HEMATOCRIT 38.9 % (42.0-52.0); HEMOGLOBIN 13.1 g/dl (14.0-17.9); LYMPHOCYTES # (AUTO) 1.7 X10'3 (1.1-4.8); LYMPHOCYTES % (AUTO) 23.4 % (21-51); MEAN CORPUSCULAR HEMOGLOBIN 29.1 PG (27.0-31.0); MEAN CORPUSCULAR HGB CONC 33.8 g/dL (33.0-36.5); MEAN CORPUSCULAR VOLUME 86.1 FL (78-98); MEAN PLATELET VOLUME 8.5 FL (7.4-10.4); MONOCYTES # (AUTO) 0.6 X10'3 (0-0.9); MONOCYTES % (AUTO) 8.4 % (2-12); NEUTROPHILS # (AUTO) 4.6 X10'3 (1.8-7.7); PLATELET COUNT 213 X10'3 (140-440); RED BLOOD COUNT 4.51 X10'6 (4.70-6.10); RED CELL DISTRIBUTION WIDTH 15.3 % (11.5-14.5); WHITE BLOOD COUNT 7.1 X10'3 (4.5-11.0)
[2024-08-03 05:24] LABS: ALANINE AMINOTRANSFERASE 21 U/L (12-78); ALBUMIN 2.7 G/DL (3.4-5.0); ALBUMIN/GLOBULIN RATIO 0.8 (1.1-1.5); ALKALINE PHOSPHATASE 108 IU/L (46-116); ANION GAP 6 (8-16); ASPARTATE AMINO TRANSFERASE 20 U/L (10-37); BILIRUBIN,TOTAL 0.5 MG/DL (0.1-1.0); BLOOD UREA NITROGEN 18 MG/DL (7-18); BUN/CREATININE RATIO 19.6 (10.0-20.0); CALCIUM 8.7 MG/DL (8.5-10.1); CHLORIDE 108 MMOL/L (99-107); CREATININE 0.92 MG/DL (0.60-1.10); GLUCOSE 84 MG/DL (70-104); MAGNESIUM 1.9 MG/DL (1.5-2.4); POTASSIUM 4.2 MMOL/L (3.5-5.1); SODIUM 143 MMOL/L (135-145); TOTAL CARBON DIOXIDE 28.6 MMOL/L (24-32); TOTAL PROTEIN 6.1 G/DL (6.4-8.2); eCRCL 63 ML/MIN; eGFR 78 ML/MIN
--- NOTE | 2024-08-03 11:56 | PROGRESS NOTE- Residence ---
Progress Note - Resident Providers to CC Resident Creating Document: GHASSAN FALKBELKIS DEVRIES ~ Antibiotic Timeout Antibiotic Ordered?: No Subjective Seen and examined the patient at bedside. No new complaints except Signs of memory loss present. His lips looks dry today. He had a breakfast and he had a bowel movement. Objective Vital Signs Date Time Temp Pulse Resp B/P (MAP) Pulse Ox O2 Delivery O2 Flow Rate FiO2 08/03/24 10:00 97.9 18 16 141/63 (89) 97 Room Air 08/03/24 08:00 0.0 Result Diagram: 08/03/242 08/03/24441 General: Elderly male, alert awake, oriented to time place person, not in acute distress, lips and oral cavity is dry. Head: Normocephalic with an atraumatic Eyes: Pupils- 3mm, reacting to light, conjunctiva- anicteric Nose and throat: No polyps, septum- normal, no mucosal ulcers Neck: Supple, no lymphadenopathy, no carotid bruit Respiratory: No use of accessory muscles of respiration, Bilateral normal vesicular breath sounds heard. No wheeze, rhochi or creps Cardiac: S1-S2 heard, rhythm regular, no gallop/murmur Abdomen: non distended, no tenderness, no organomegaly, bowel sounds - heard Extremities: no clubbing, no pedal edema, no deformities, peripheral pulses - 2+ Skin: warm and dry, no rash, no purpura Neuro: Unable to examine, able to move all four extremities Coagulation Studies Laboratory Tests Test 08/01/24 21:36 Prothrombin Time 11.4 SECONDS (9.0-12.0) INR International Normalized Ratio 1.1 INR Coagulation Comments Advance Care Planning Advanced Care plannin - 30 Minutes Assessment Assessment It was disease old male admitted for altered mental status secondary to seizures. Plan Plan Acute metabolic encephalopathy 2/[address] head, CTA head and neck done at [facility]. No acute abnormality found. 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 Start Keppra 500 mg q.12 hours. Ativan 2 mg IV p.r.n. for breakthrough seizures. DMV notification. Review home medications for any agents that can lower seizure threshold. Follow up with the labs, EEG and MRI. Patient has a pacemaker. It needs to be turned off before MRI. CBC, CMP, CK, free T4 are within normal limits. TSH 8.07. Elevated lactic acid 3.20, follow up with repeat lactic acid. Started the patient on Keppra 500 mg q.12h. IV fluids normal saline at 75 mL/hour. Consider repeat tele neurology consultation after labs and imaging to see if the patient needs to be on long-term seizure medication. Q.4h neuro checks. Continue telemetry monitoring. 08/02/2024: Patient has a pacemaker but we do not know the details of the pacemaker whether it is MRI compatible or not. Per RN, family does not have the details of pacemaker and day lost the information card. Once we decide upon the MRI compatibility of pacemaker then we will proceed with the MRI. EEG is ordered. Lactic acid levels is 1.8. We will continue Keppra 500 mg p.o. b.i.d. q.4h .we will continue q.4h neuro checks and we will continue to monitor telemetry. 08/03/2024 Pending MRI because of pacemaker compatibility issues. If patient is not going for the MRI and we will do CT. PT cleared for previous living environment-SNF - [facility]. Echo is showing RVSP of 39. CBC and CMP is okay today urine analysis and U tox is negative. EEGs showing diffuse slowing suggestive of encephalopathy. Vitals are stable but the heart rate is in 56. We will continue Keppra. History of atrial fibrillation Continue flecainide 50 mg q.12h and Eliquis 5 mg q.12h, metoprolol succinate 25 mg once daily. 08/02/2024 - Heart rate is in 60s - we will continue apixaban 5 mg q.12h, metoprolol 25 mg -reported patient was not taking flecainide 08/03/2024 - no new episodes of AFib. we will continue apixaban 5 mg q.12h, metoprolol 25 mg Hyperlipidemia Continue Lipitor 40 mg daily. History of CHF Held the Lasix We will continue aspirin 81 mg p.o. daily Dementia Donepezil 5 mg held as it could decrease seizure threshold. Diabetes mellitus type 2 No home hypoglycemic agents. Ordered A1c and we will follow up with the results Blood glucose is 74 08/03/2024 Blood glucose is 84 We will continue to monitor blood glucose. Code Status: Full code DVT Prophylaxis: Eliquis Lines/Tubes: PIV Nutrition: Heart healthy diet PT: longterm facility- [place] [facility]gn[facility] Date of Service: August 03, 2024 Billing Provider: EPIFANIO MACIAS MD Common Visit Codes: [id number] INP/OBS CARE(HIGH) DREW FALK, [facility] August 03, 2024 11:56 EPIFANIO MACIAS MD August 03, 2024 18:34
--- NOTE | 2024-08-03 15:29 | RADIOLOGY REPORT ---
EXAM: CT CT HEAD HISTORY: ALOC COMPARISON: None TECHNIQUE: Axial images of the head were obtained and reformatted in coronal and sagittal planes. All CT scans at this medical facility are performed using dose modulation techniques as appropriate t o a performed exam including the following: Automated exposure control was utilized; adjustment of th e MA and/or KV according to patient size; and use of iterative reconstruction technique. CT Dose: CTDI volume is 59 mGy. Dose-length product is 11 18 mGy*cm FINDINGS: There is no evidence of acute intracranial hemorrhage, mass, mass effect midline shift. There is no h ydrocephalus or extra-axial fluid collection. There is a small chronic infarct in the right anterior arambula radiata. There are patchy chronic microvascular ischemic changes in the supratentorial white matter. The visualized paranasal sinuses and mastoid air cells are clear. The calvarium is intact. IMPRESSION: 1. No acute intracranial process. 2. Small chronic infarct in the right anterior arambula radiata. HS:Y
--- NOTE | 2024-08-03 18:19 | RADIOLOGY REPORT ---
EXAM: DI PELVIS,LIMITED 1-2 VIEWS INDICATION: verifying rods for penile implant for MRI TECHNIQUE: 1 views of the pelvis COMPARISON: None FINDINGS/IMPRESSION: No radiographic evidence of an acute osseous abnormality. There is no acute fracture, osseous malalig nment, or aggressive focal osseous lesion. Bilateral total hip arthroplasties. Surgical clips in the pelvis. Left inferior sacroiliac joint degenerative change. Heterotopic ossification of the left prox imal femur. Vascular calcifications. Mild stool burden within colon. Penile implant.
--- NOTE | 2024-08-03 18:53 | CARDIOLOGY REPORT ---
APPROVED REPORT EXAM: Comprehensive 2D, Doppler, and color-flow Echocardiogram with saline. Patient Location: 4009A Blood Pressure: 150/56 mmHg Heart Rate: 60 bpm Rhythm: Paced Indications CHF Pro BNP 460 Pacemaker Childhood Development Teacher unknown No previous echo 2D Dimensions LA Diam5.0 cm IVSd 1.1 (0.7-1.1cm) LVDd 4.6 cm PWd 1.1 (0.7-1.1cm) IVSs 1.4 (0.8-1.2cm) LVDs 3.2 (2.5-4.0cm) Aortic Root(2D) 3.6 cm PWs 1.4 (0.8-1.2cm) LVOT Diameter 2.38 (1.8-2.4cm) LVEF(%) 57.3 (>50%) Ao Asc Diam.3.89 cmFS (%) 30.0 % SV 55.2 ml CO 3.7 L/min M-Mode Dimensions MV EPSS 0.7 (<0.5cm) Aortic Valve AoV Peak Yandel. 127.7 cm/s AoV VTI 29.9 cm AO Peak GR. 6.5 mmHg AO Mean GR. 3 mmHg LVOT VTI 26.20 cm LVOT Peak Yandel. 102.3 cm/s EMILY(VTI)/BSA 8.78 cm2/m2 EMILY (VTI) 8.78 cm2 Mitral Valve MV E Velocity 57.9 cm/s MV Peak Gr. 2 mmHg MV DECEL TIME 188 ms MV A Velocity 67.2 cm/s MV PHT 64 ms E/A Ratio 0.9 MVA (PHT) 3.44 cm2 MV VMax76.8 cm/s TDI Medial E' P. V 10.18 cm/s E/Medial E' 5.7 Tricuspid Valve TR P. Velocity 268 cm/s RAP ESTIMATE 10 mmHg TR Peak Gr. 29 mmHg RVSP 39 mmHg Pulmonary Vein S1 Velocity 53.2 cm/s D2 Velocity 24.4 cm/s PVa Tqfydhzr34.2 cm/s PVa [id number] msec LEFT VENTRICLE Normal LV size and wall thickness. Overall systolic function is normal. LVEF is 60%. RIGHT VENTRICLE RV appears mildly dilated with normal contractility. Pacemaker wire in right heart. RVSP is estimated at 39 mmHG. ATRIA Left atrium is moderately dilated. Saline study was performed with 2 IV injections of 10 ccs of agita doretha normal saline at rest, with cough, and with valsalva. Negative saline study for right to left yany w. AORTIC VALVE Trileaflet AV appears sclerotic without stenosis. Mild insufficiency. MITRAL VALVE MV is thickened with mild annular thickening and no stenosis. Mild mitral regurgitation. TRICUSPID VALVE The tricuspid valve is normal in structure. Mild tricuspid regurgitation. PULMONIC VALVE The pulmonary valve is normal in structure. Trace to mild pulmonic regurgitation. GREAT VESSELS The aortic root is normal in size. Ascending aorta measured at 3.9 cm. IVC is not well visualized. PERICARDIUM There is no pericardial effusion. Other Information Study Quality: Adequate but poor subcostals
[2024-08-04 06:00] VITALS: BP 127/52; PULSE 60; RESP 16; TEMP 97.6; O2SAT 91
[2024-08-04 06:52] LABS: BASOPHILS # (AUTO) 0.1 X10'3 (0-0.2); BASOPHILS % (AUTO) 0.9 % (0-1); EOSINOPHILS # (AUTO) 0.3 X10'3 (0-0.9); EOSINOPHILS % (AUTO) 3.4 % (0-6); HEMATOCRIT 36.9 % (42.0-52.0); HEMOGLOBIN 12.4 g/dl (14.0-17.9); LYMPHOCYTES # (AUTO) 1.5 X10'3 (1.1-4.8); LYMPHOCYTES % (AUTO) 18.9 % (21-51); MEAN CORPUSCULAR HEMOGLOBIN 29.1 PG (27.0-31.0); MEAN CORPUSCULAR HGB CONC 33.6 g/dL (33.0-36.5); MEAN CORPUSCULAR VOLUME 86.5 FL (78-98); MEAN PLATELET VOLUME 8.6 FL (7.4-10.4); MONOCYTES # (AUTO) 0.7 X10'3 (0-0.9); MONOCYTES % (AUTO) 8.7 % (2-12); NEUTROPHILS # (AUTO) 5.3 X10'3 (1.8-7.7); NEUTROPHILS % (AUTO) 68.1 % (42-75); PLATELET COUNT 208 X10'3 (140-440); RED BLOOD COUNT 4.27 X10'6 (4.70-6.10); RED CELL DISTRIBUTION WIDTH 15.3 % (11.5-14.5); WHITE BLOOD COUNT 7.8 X10'3 (4.5-11.0)
[2024-08-04 07:25] LABS: ALANINE AMINOTRANSFERASE 25 U/L (12-78); ALBUMIN 2.6 G/DL (3.4-5.0); ALBUMIN/GLOBULIN RATIO 0.8 (1.1-1.5); ALKALINE PHOSPHATASE 104 IU/L (46-116); ANION GAP 5 (8-16); ASPARTATE AMINO TRANSFERASE 24 U/L (10-37); BILIRUBIN,TOTAL 0.4 MG/DL (0.1-1.0); BLOOD UREA NITROGEN 18 MG/DL (7-18); BUN/CREATININE RATIO 19.1 (10.0-20.0); CALCIUM 8.5 MG/DL (8.5-10.1); CHLORIDE 110 MMOL/L (99-107); CREATININE 0.94 MG/DL (0.60-1.10); GLUCOSE 86 MG/DL (70-104); MAGNESIUM 1.8 MG/DL (1.5-2.4); SODIUM 143 MMOL/L (135-145); TOTAL CARBON DIOXIDE 28.4 MMOL/L (24-32); TOTAL PROTEIN 5.9 G/DL (6.4-8.2); eCRCL 62 ML/MIN; eGFR 76 ML/MIN
[2024-08-04 07:41] LABS: POTASSIUM 4.4 MMOL/L (3.5-5.1)
[2024-08-04 10:00] VITALS: BP 117/48; PULSE 60; RESP 19; TEMP 97.6; O2SAT 98
--- NOTE | 2024-08-04 12:30 | RADIOLOGY REPORT ---
MRI BRAIN WITHOUT CONTRAST CLINICAL HISTORY: new onset sz TECHNIQUE: Multiplanar, multisequence MR images of the brain without intravenous contrast. Comparison: CT CT HEAD on DOS: 08/03/24 FINDINGS: There is no restricted diffusion. There is moderate generalized parenchymal volume loss. There is a s mall chronic infarct in the right anterior arambula radiata. There are small parenchymal defects in the right and left cerebellum which may represent additional small chronic infarcts. There are chronic s mall-vessel ischemic changes in the supratentorial white matter. There is no evidence of acute hemorrhage, mass, mass effect or midline shift. There is no hydrocephal us or extra-axial fluid collection. The visualized intracranial vasculature demonstrates appropriate flow-voids. The sagittal midline structures appear unremarkable. The craniocervical junction is withi n normal limits. The calvarium demonstrates normal marrow signal. There is fluid in the bilateral mas toid air cells. The paranasal sinuses are clear. IMPRESSION: 1. There is no acute intracranial process. 2. Chronic ischemic changes as described above. HS:Y
--- NOTE | 2024-08-04 14:58 | DISCHARGE SUMMARY-Residence ---
Discharge Summary Providers to CC Resident Creating Document: DOLORES FALK, RES ~ Discharge Summary Admission Diagnosis: Seizure Hospital Course DATE OF ADMISSION: 08/01/2024 DATE OF DISCHARGE: 08/04/2024 Chest x-ray on 08/01/2024 Mild pulmonary vascular congestion Echo on 08/02/2024 LEFT VENTRICLE Normal LV size and wall thickness. Overall systolic function is normal. LVEF is 60%. RIGHT VENTRICLE RV appears mildly dilated with normal contractility. Pacemaker wire in right heart. RVSP is estimated at 39 mmHG. ATRIA Left atrium is moderately dilated. Saline study was performed with 2 IV injections of 10 ccs of agitated normal saline at rest, with cough, and with valsalva. Negative saline study for right to left flow. AORTIC VALVE Trileaflet AV appears sclerotic without stenosis. Mild insufficiency. MITRAL VALVE MV is thickened with mild annular thickening and no stenosis. Mild mitral regurgitation. TRICUSPID VALVE The tricuspid valve is normal in structure. Mild tricuspid regurgitation. PULMONIC VALVE The pulmonary valve is normal in structure. Trace to mild pulmonic regurgitation. GREAT VESSELS The aortic root is normal in size. Ascending aorta measured at 3.9 cm. IVC is not well visualized. PERICARDIUM There is no pericardial effusion. Other Information Study Quality: Adequate but poor subcostals Pelvis x-ray on 08/03/2024 FINDINGS/IMPRESSION: No radiographic evidence of an acute osseous abnormality. There is no acute fracture, osseous malalignment, or aggressive focal osseous lesion. Bilateral total hip arthroplasties. Surgical clips in the pelvis. Left inferior sacroiliac joint degenerative change. Heterotopic ossification of the left proximal femur. Vascular calcifications. Mild stool burden within colon. Penile implant. Head CT on 08/03/2024 FINDINGS: There is no evidence of acute intracranial hemorrhage, mass, mass effect midline shift. There is no hydrocephalus or extra-axial fluid collection. There is a small chronic infarct in the right anterior arambula radiata. There are patchy chronic microvascular ischemic changes in the supratentorial white matter. The visualized paranasal sinuses and mastoid air cells are clear. The calvarium is intact. IMPRESSION: 1. No acute intracranial process. 2. Small chronic infarct in the right anterior arambula radiata. Head MRI on 08/04/2024 FINDINGS: There is no restricted diffusion. There is moderate generalized parenchymal volume loss. There is a small chronic infarct in the right anterior arambula radiata. There are small parenchymal defects in the right and left cerebellum which may represent additional small chronic infarcts. There are chronic small- vessel ischemic changes in the supratentorial white matter. There is no evidence of acute hemorrhage, mass, mass effect or midline shift. There is no hydrocephalus or extra-axial fluid collection. The visualized intracranial vasculature demonstrates appropriate flow-voids. The sagittal midl ine structures appear unremarkable. The craniocervical junction is within normal limits. The calvarium demonstrates normal marrow signal. There is fluid in the bilateral mastoid air cells. The paranasal sinuses are clear. IMPRESSION: 1. There is no acute intracranial process. 2. Chronic ischemic changes as described above. Discharge Diagnosis\Comment: Acute metabolic encephalopathy Seizures Chronic ischemia cerebrovascular accident Atrial fibrillation Hyperlipidemia CHF Dementia Type 2 diabetes mellitus Pacemaker Prostate cancer Anxiety Remote history of seizures Operations\Procedures: None Consultants: Figueroa Tracy Complications: None Condition on DC: Stable Discharge Summary: HPI at the time of admission The patient is an 88-year-old male with past medical history of diabetes mellitus, AFib, pacemaker, CHF, dementia, prostate cancer, who [facility], was transferred from [facility] for the requirement of MRI. The patient has dementia and unable to give any sort of history. As per the records from [facility], patient is normally alert and oriented x2, arrived to the ED with A&O x 0. SNF staff reported that they were called into his room for seizure-like activity. It was also reported that the patient had an episode of urinary incontinence during the seizure-like episode. No known trauma or falls, no reported fevers or headache or neck pain. Course in the hospital Acute metabolic encephalopathy secondary to seizures. CT head, CTA head and neck done at [facility]. No acute abnormality found. Neurology were consulted. Hemoglobin is 12.4 and hematocrit is 36.9. CMP is unremarkable except serum albumin of 2.6. U tox is negative. We repeated the CT after 48 ho urs as we could not able to do the MRI because of unknown pacemaker compatibility. CBC, CMP, CK, free T4 are within normal limits. TSH 8.07. Lactic acid is trended down from previous value of 3.2-1.8. Patient received the patient Keppra 500 mg q.12h and IV fluids normal saline at 75 mL/hour. Patient has a pacemaker but we do not know the details of the pacemaker whether it is MRI compatible or not. Per RN, family does not have the details of pacemaker and they lost the information card. EEG showed diffuse slowing suggestive of encephalopathy. We continued q.4h neuro checks and we continued monitor telemetry. History of atrial fibrillation Continue flecainide 50 mg q.12h and Eliquis 5 mg q.12h, metoprolol succinate 25 mg once daily. 08/02/2024 - Heart rate is in 60s - we will continue apixaban 5 mg q.12h, metoprolol 25 mg -reported patient was not taking flecainide 08/03/2024 - no new episodes of AFib. we will continue apixaban 5 mg q.12h, metoprolol 25 mg Hyperlipidemia Continue Lipitor 40 mg daily. History of CHF Held the Lasix We will continue aspirin 81 mg p.o. daily Dementia Donepezil 5 mg held as it could decrease seizure threshold. Diabetes mellitus type 2 No home hypoglycemic agents. Ordered A1c and we will follow up with the results Blood glucose is 74 08/03/2024 Blood glucose is 84 We will continue to monitor blood glucose. Code Status: Full code DVT Prophylaxis: Eliquis Lines/Tubes: PIV Nutrition: Heart healthy diet PT: [facility] facility- [facility] Prognosis: Guarded Examination at the time of discharge Vital Signs Date Time Temp Pulse Resp B/P (MAP) Pulse Ox O2 Delivery O2 Flow Rate FiO2 08/04/24 08:00 Room Air 08/04/24 06:00 97.6 60 16 127/52 (77) 91 08/03/24 08:00 0.0 Elderly male, alert awake, oriented to time place person, not in acute distress. Head: Normocephalic with an atraumatic Eyes: Pupils- 3mm, reacting to light, conjunctiva- anicteric Nose and throat: No polyps, septum- normal, no mucosal ulcers Neck: Supple, no lymphadenopathy, no carotid bruit Respiratory: No use of accessory muscles of respiration, Bilateral normal vesicular breath sounds heard. No wheeze, rhochi or creps Cardiac: S1-S2 heard, rhythm regular, no gallop/murmur Abdomen: non distended, no tenderness, no organomegaly, bowel sounds - heard Extremities: no clubbing, no pedal edema, no deformities, peripheral pulses - 2+ Skin: warm and dry, no rash, no purpura Neuro: Unable to examine, able to move all four extremities. Laboratory Tests Test 08/03/24 04:42 08/04/24 06:25 White Blood Count 7.1 X10'3 7.8 X10'3 Red Blood Count 4.51 X10'6 4.27 X10'6 Hemoglobin 13.1 g/dl 12.4 g/dl Hematocrit 38.9 % 36.9 % Mean Corpuscular Volume 86.1 FL 86.5 FL Mean Corpuscular Hemoglobin 29.1 PG 29.1 PG Mean Corpuscular Hemoglobin Concent 33.8 g/dL 33.6 g/dL Red Cell Distribution Width 15.3 % 15.3 % Platelet Count 213 X10'3 208 X10'3 Mean Platelet Volume 8.5 FL 8.6 FL Neutrophils (%) (Auto) 64.0 % 68.1 % Lymphocytes (%) (Auto) 23.4 % 18.9 % Monocytes (%) (Auto) 8.4 % 8.7 % Eosinophils (%) (Auto) 3.2 % 3.4 % Basophils (%) (Auto) 1.0 % 0.9 % Neutrophils # (Auto) 4.6 X10'3 5.3 X10'3 Lymphocytes # (Auto) 1.7 X10'3 1.5 X10'3 Monocytes # (Auto) 0.6 X10'3 0.7 X10'3 Eosinophils # (Auto) 0.2 X10'3 0.3 X10'3 Basophils # (Auto) 0.1 X10'3 0.1 X10'3 CBC Comment Sodium Level 143 MMOL/L 143 MMOL/L Potassium Level 4.2 MMOL/L 4.4 MMOL/L Chloride Level 108 MMOL/L 110 MMOL/L Carbon Dioxide Level 28.6 MMOL/L 28.4 MMOL/L Anion Gap 6 5 Blood Urea Nitrogen 18 MG/DL 18 MG/DL Creatinine 0.92 MG/DL 0.94 MG/DL Estimated GFR/1.73 m2 78 ML/MIN 76 ML/MIN BUN/Creatinine Ratio 19.6 19.1 Glucose Level 84 MG/DL 86 MG/DL Calcium Level 8.7 MG/DL 8.5 MG/DL Magnesium Level 1.9 MG/DL 1.8 MG/DL Total Bilirubin 0.5 MG/DL 0.4 MG/DL Aspartate Amino Transf (AST/SGOT) 20 U/L 24 U/L Alanine Aminotransferase (ALT/SGPT) 21 U/L 25 U/L Alkaline Phosphatase 108 IU/L 104 IU/L Total Protein 6.1 G/DL 5.9 G/DL Albumin 2.7 G/DL 2.6 G/DL Globulin 3.4 G/DL 3.3 G/DL Albumin/Globulin Ratio 0.8 0.8 Chemistry Comments Discharge advice fup with pcp 1 week with cbc,cmp. fup with neurologist in one week & continue keppra 500mg po bid. discontinued lasix. read side eefects of prescribed medication. call 911or visit er if emergency. *Problems/Diagnosis: (1) Chronic cerebrovascular accident (CVA) (2) Chronic cerebral ischemia (3) Acute metabolic encephalopathy (4) Seizures (5) Atrial fibrillation (6) Hyperlipidemia (7) CHF (congestive heart failure) (8) Dementia (9) Type 2 diabetes mellitus Total Time Spent on D/C: > 30 Minutes Date of Service: August 04, 2024 Billing Provider: EPIFANIO MACIAS MD Common Visit Codes: [id number] DISCH DAY >30min DOLORES FALK, BELKIS August 04, 2024 14:20 EPIFANIO MACIAS MD August 04, 2024 18:39
[2024-08-04 18:00] VITALS: BP 141/60; PULSE 84; RESP 16; TEMP 98.1; O2SAT 95
[2024-08-04 20:00] VITALS: RESP 16; O2SAT 95
--- NOTE | 2024-08-04 20:11 | PROGRESS NOTE- Residence ---
Progress Note - Resident Providers to CC Resident Creating Document: ANGELICAMBER ARNDTEBLKIS SAUCEDO ~ Antibiotic Timeout Antibiotic Ordered?: No Subjective Seen and examined the patient at bedside. He is at his baseline mentation. No new subjective complaints except the signs of memory loss Objective Vital Signs Date Time Temp Pulse Resp B/P (MAP) Pulse Ox O2 Delivery O2 Flow Rate FiO2 08/04/24 10:00 97.6 60 19 117/48 (71) 98 Room Air 08/03/24 08:00 0.0 Result Diagram: 08/04/2462408/04/24624 General: Elderly male, alert awake, oriented to time place person, not in acute distress, Head: Normocephalic with an atraumatic Eyes: Pupils- 3mm, reacting to light, conjunctiva- anicteric Nose and throat: No polyps, septum- normal, no mucosal ulcers Neck: Supple, no lymphadenopathy, no carotid bruit Respiratory: No use of accessory muscles of respiration, Bilateral normal vesicular breath sounds heard. No wheeze, rhochi or creps Cardiac: S1-S2 heard, rhythm regular, no gallop/murmur Abdomen: non distended, no tenderness, no organomegaly, bowel sounds - heard Extremities: no clubbing, no pedal edema, no deformities, peripheral pulses - 2+ Skin: warm and dry, no rash, no purpura Neuro: Unable to examine, able to move all four extremities Coagulation Studies Laboratory Tests Test 08/01/24 21:36 Prothrombin Time 11.4 SECONDS (9.0-12.0) INR International Normalized Ratio 1.1 INR Coagulation Comments Advance Care Planning Advanced Care plannin - 30 Minutes Assessment Assessment It was disease old male admitted for altered mental status secondary to seizures. Plan Plan Acute metabolic encephalopathy 2/[address] head, CTA head [facility] neck done at [facility]. No acute abnormality found. Neurology consultation- Urine toxicology, CK, procalcitonin, prolactin, CBC, CMP, TSH, T3/T4, MRI brain c/s contrast, LP if meningeal signs on examination or no other etiology found, neuro checks, re-consult for decision on fpc seizure medication requirement. Start Keppra 500 mg q.12 hours. Ativan 2 mg IV p.r.n. for breakthrough seizures. DMV notification. Review home medications for any agents that can lower seizure threshold. Follow up with the labs, EEG and MRI. Patient has a pacemaker. It needs to be turned off before MRI. CBC, CMP, CK, free T4 are within normal limits. TSH 8.07. Elevated lactic acid 3.20, follow up with repeat lactic acid. Started the patient on Keppra 500 mg q.12h. IV fluids normal saline at 75 mL/hour. Consider repeat tele neurology consultation after labs and imaging to see if the patient needs to be on long-term seizure medication. Q.4h neuro checks. Continue telemetry monitoring. 08/02/2024: Patient has a pacemaker but we do not know the details of the pacemaker whether it is MRI compatible or not. Per RN, family does not have the details of pacemaker and day lost the information card. Once we decide upon the MRI compatibility of pacemaker then we will proceed with the MRI. EEG is ordered. Lactic acid levels is 1.8. We will continue Keppra 500 mg p.o. b.i.d. q.4h .we will continue q.4h neuro checks and we will continue to monitor telemetry. 08/03/2024 Pending MRI because of pacemaker compatibility issues. If patient is not going for the MRI and we will do CT. PT cleared for previous living environment-SNF - [facility]. Echo is showing RVSP of 39. CBC and CMP is okay today urine analysis and U tox is negative. EEGs showing diffuse slowing suggestive of encephalopathy. Vitals are stable but the heart rate is in 56. We will continue Keppra. 08/04/2024- MRI is ruled out acute intracranial pauses and showed chronic ischemic changes.. CT also showed the same. We are continuing Keppra until Neurological consultation in outpatient. History of atrial fibrillation Continue flecainide 50 mg q.12h and Eliquis 5 mg q.12h, metoprolol succinate 25 mg once daily. 08/02/2024 - Heart rate is in 60s - we will continue apixaban 5 mg q.12h, metoprolol 25 mg -reported patient was not taking flecainide 08/03/2024 - no new episodes of AFib. we will continue apixaban 5 mg q.12h, metoprolol 25 mg 08/04/2024 -no new episodes. We will continue apixaban and metoprolol Hyperlipidemia Continue Lipitor 40 mg daily. History of CHF Held the Lasix We will continue aspirin 81 mg p.o. daily Dementia Donepezil 5 mg held as it could decrease seizure threshold. Diabetes mellitus type 2 No home hypoglycemic agents. Ordered A1c and we will follow up with the results Blood glucose is 74 08/03/2024 Blood glucose is 84 We will continue to monitor blood glucose. 08/04/2024 Blood glucose is 86 and we will continue to monitor blood glucose. Code Status: Full code DVT Prophylaxis: Eliquis Lines/Tubes: PIV Nutrition: Heart healthy diet PT: retirement facility- [facility] Prognosis: Guarded Drew Falk resident Disposition: Anticipate DC to [facility] at 11:00 a.m. on tomorrow Date of Service: August 04, 2024 Billing Provider: EPIFANIO MACIAS MD Common Visit Codes: [id number] INP/OBS CARE(HIGH) DREW FALK, BELKIS August 04, 2024 20:11 EPIFANIO MACIAS MD August 05, 2024 20:20
[2024-08-04 22:00] VITALS: BP 150/51; PULSE 60; RESP 16; TEMP 97.7; O2SAT 97
[2024-08-05 06:00] VITALS: BP 128/55; PULSE 61; RESP 16; TEMP 97.6; O2SAT 92
[2024-08-05 06:49] LABS: BASOPHILS # (AUTO) 0.1 X10'3 (0-0.2); BASOPHILS % (AUTO) 0.9 % (0-1); EOSINOPHILS # (AUTO) 0.3 X10'3 (0-0.9); EOSINOPHILS % (AUTO) 3.8 % (0-6); HEMATOCRIT 36.8 % (42.0-52.0); HEMOGLOBIN 12.4 g/dl (14.0-17.9); LYMPHOCYTES # (AUTO) 1.6 X10'3 (1.1-4.8); LYMPHOCYTES % (AUTO) 21.8 % (21-51); MEAN CORPUSCULAR HEMOGLOBIN 28.8 PG (27.0-31.0); MEAN CORPUSCULAR HGB CONC 33.6 g/dL (33.0-36.5); MEAN CORPUSCULAR VOLUME 85.7 FL (78-98); MEAN PLATELET VOLUME 9.1 FL (7.4-10.4); MONOCYTES # (AUTO) 0.6 X10'3 (0-0.9); MONOCYTES % (AUTO) 7.7 % (2-12); NEUTROPHILS # (AUTO) 4.7 X10'3 (1.8-7.7); NEUTROPHILS % (AUTO) 65.8 % (42-75); PLATELET COUNT 218 X10'3 (140-440); RED BLOOD COUNT 4.29 X10'6 (4.70-6.10); WHITE BLOOD COUNT 7.2 X10'3 (4.5-11.0)
[2024-08-05 06:55] LABS: ALANINE AMINOTRANSFERASE 27 U/L (12-78); ALBUMIN 2.7 G/DL (3.4-5.0); ALBUMIN/GLOBULIN RATIO 0.8 (1.1-1.5); ALKALINE PHOSPHATASE 105 IU/L (46-116); ANION GAP 8 (8-16); ASPARTATE AMINO TRANSFERASE 19 U/L (10-37); BILIRUBIN,TOTAL 0.4 MG/DL (0.1-1.0); BLOOD UREA NITROGEN 17 MG/DL (7-18); BUN/CREATININE RATIO 18.5 (10.0-20.0); CALCIUM 8.8 MG/DL (8.5-10.1); CHLORIDE 110 MMOL/L (99-107); CREATININE 0.92 MG/DL (0.60-1.10); GLUCOSE 88 MG/DL (70-104); MAGNESIUM 1.8 MG/DL (1.5-2.4); POTASSIUM 4.1 MMOL/L (3.5-5.1); SODIUM 146 MMOL/L (135-145); TOTAL CARBON DIOXIDE 28.4 MMOL/L (24-32); TOTAL PROTEIN 5.9 G/DL (6.4-8.2); eCRCL 63 ML/MIN; eGFR 78 ML/MIN
[2024-08-05 08:00] VITALS: RESP 16; O2SAT 92
[2024-08-05 10:00] VITALS: BP 144/59; PULSE 59; RESP 16; TEMP 97.8; O2SAT 98
--- NOTE | 2024-08-05 11:11 | DISCHARGE SUMMARY-Residence ---
Discharge Summary Providers to CC Resident Creating Document: KARINE REEVES RES ~ Discharge Summary Admission Diagnosis: Seizure Hospital Course DATE OF ADMISSION: 08/01/24 DATE OF DISCHARGE: 08/05/24 Chest x-ray on 08/01/2024 Mild pulmonary vascular congestion Echo on 08/02/2024 LEFT VENTRICLE Normal LV size and wall thickness. Overall systolic function is normal. LVEF is 60%. RIGHT VENTRICLE RV appears mildly dilated with normal contractility. Pacemaker wire in right heart. RVSP is estimated at 39 mmHG. ATRIA Left atrium is moderately dilated. Saline study was performed with 2 IV injections of 10 ccs of agitated normal saline at rest, with cough, and with valsalva. Negative saline study for right to left flow. AORTIC VALVE Trileaflet AV appears sclerotic without stenosis. Mild insufficiency. MITRAL VALVE MV is thickened with mild annular thickening and no stenosis. Mild mitral regurgitation. TRICUSPID VALVE The tricuspid valve is normal in structure. Mild tricuspid regurgitation. PULMONIC VALVE The pulmonary valve is normal in structure. Trace to mild pulmonic regurgitation. GREAT VESSELS The aortic root is normal in size. Ascending aorta measured at 3.9 cm. IVC is not well visualized. PERICARDIUM There is no pericardial effusion. Other Information Study Quality: Adequate but poor subcostals Pelvis x-ray on 08/03/2024 FINDINGS/IMPRESSION: No radiographic evidence of an acute osseous abnormality. There is no acute fracture, osseous malalignment, or aggressive focal osseous lesion. Bilateral total hip arthroplasties. Surgical clips in the pelvis. Left inferior sacroiliac joint degenerative change. Heterotopic ossification of the left proximal femur. Vascular calcifications. Mild stool burden within colon. Penile implant. Head CT on 08/03/2024 FINDINGS: There is no evidence of acute intracranial hemorrhage, mass, mass effect midline shift. There is no hydrocephalus or extra-axial fluid collection. There is a small chronic infarct in the right anterior arambula radiata. There are patchy chronic microvascular ischemic changes in the supratentorial white matter. The visualized paranasal sinuses and mastoid air cells are clear. The calvarium is intact. IMPRESSION: 1. No acute intracranial process. 2. Small chronic infarct in the right anterior arambula radiata. Head MRI on 08/04/2024 FINDINGS: There is no restricted diffusion. There is moderate generalized parenchymal volume loss. There is a small chronic infarct in the right anterior arambula radiata. There are small parenchymal defects in the right and left cerebellum which may represent additional small chronic infarcts. There are chronic small- vessel ischemic changes in the supratentorial white matter. There is no evidence of acute hemorrhage, mass, mass effect or midline shift. There is no hydrocephalus or extra-axial fluid collection. The visualized intracranial vasculature demonstrates appropriate flow-voids. The sagittal midline structures appear unremarkable. The craniocervical junction is within normal limits. The calvarium demonstrates normal marrow signal. There is fluid in the bilateral mastoid air cells. The paranasal sinuses are clear. IMPRESSION: 1. There is no acute intracranial process. 2. Chronic ischemic changes as described above. Discharge Diagnosis\Comment: Acute metabolic encephalopathy Seizures; Remote history of seizures Chronic ischemia cerebrovascular accident Atrial fibrillation Hyperlipidemia CHF Dementia Type 2 diabetes mellitus Pacemaker Prostate cancer Anxiety Operations\Procedures: None Consultants: Figueroa Tracy Complications: None Condition on DC: Stable for transfer Discharge Summary: The patient is an 88-year-old male with past medical history of diabetes mellitus, AFib, pacemaker, CHF, dementia, prostate cancer, who is a resident of [facility] facility, was transferred from [facility] for the requirement of MRI. The patient has dementia and unable to give any sort of history. As per the records from [facility], patient is normally alert and oriented x2, arrived to the ED with A&O x 0. SNF staff reported that they were called into his room for seizure-like activity. It was also reported that the patient had an episode of urinary incontinence during the seizure-like episode. No known trauma or falls, no reported fevers or headache or neck pain. Course in the hospital Acute metabolic encephalopathy secondary to seizures. CT head, CTA head and neck done at [facility]. No acute abnormality found. Neurology were consulted. Hemoglobin is 12.4 and hematocrit is 36.9. CMP is unremarkable e xcept serum albumin of 2.6. U tox is negative. We repeated the CT after 48 hours as we could not able to do the MRI because of unknown pacemaker compatibility. CBC, CMP, CK, free T4 are within normal limits. TSH 8.07. Lactic acid is trended down from previous value of 3.2-1.8. Patient received the patient Keppra 500 mg q.12h and IV fluids normal saline at 75 mL/hour. Patient has a pacemaker but we do not know the details of the pacemaker whether it is MRI compatible or not. Per RN, family does not have the details of pacemaker and they lost the information card. EEG showed diffuse slowing suggestive of encephalopathy. We continued q.4h neuro checks and we continued monitor telemetry. History of atrial fibrillation- no new episodes of AFib. we will continue apixaban 5 mg q.12h, metoprolol 25 mg Hyperlipidemia- Continue Lipitor 40 mg daily. History of CHF- Held the Lasix; We will continue aspirin 81 mg p.o. daily Dementia- Donepezil 5 mg held as it could decrease seizure threshold. Diabetes mellitus type 2- continued close monitoring of blood glucose. A1c 5.2 Advised at discharge: Daily physical therapy, fall precautions, aspiration precautions, seizure precautions. Continue medications as indicated, Keppra 500 mg b.i.d.. Discontinue home medication of Lasix. Follow up with Neurology and PCP in 1-2 weeks after discharge. Repeat CBC and CMP, ESR and CRP levels in one week. Read side effects of prescribed medication. Physical exam at discharge: Elderly male, alert awake, minimally interactive Head: Normocephalic with an atraumatic Eyes: Pupils- 3mm, reacting to light, conjunctiva- anicteric Nose and throat: No polyps, septum- normal, no mucosal ulcers Neck: Supple, no lymphadenopathy, no carotid bruit Respiratory: No use of accessory muscles of respiration, Bilateral normal vesicular breath sounds heard. No wheeze, rhochi or creps Cardiac: S1-S2 heard, rhythm regular, no gallop/murmur Abdomen: non distended, no tenderness, no organomegaly, bowel sounds - heard Extremities: no clubbing, no pedal edema, no deformities, peripheral pulses - 2+ Skin: warm and dry, no rash, no purpura Neuro: Alert, awake and oriented to time place and person. Unable to examine, able to move all four extremities. Labs at discharge: WBC 7.2, RBC 4.2, hemoglobin 12.4, platelets 218 Sodium 146, potassium 4.1, chloride 110, bicarb 28.4, BUN 17, creatinine 0.9, blood glucose 88 Medications at discharge: Keppra 500 mg b.i.d., atorvastatin 40 mg daily, metoprolol 25 mg daily, aspirin 81 mg daily, Eliquis 5 mg b.i.d., Tylenol p.r.n., bisacodyl 10 mg p.r.n., donepezil 5 mg daily *Problems/Diagnosis: (1) Chronic cerebrovascular accident (CVA) Status: Chronic (2) Chronic cerebral ischemia (3) Acute metabolic encephalopathy Status: Acute (4) Seizures Status: Acute (5) Atrial fibrillation (6) Hyperlipidemia (7) CHF (congestive heart failure) (8) Dementia (9) Type 2 diabetes mellitus Total Time Spent on D/C: > 30 Minutes Date of Service: August 05, 2024 Billing Provider: EPIFANIO MACIAS MD Common Visit Codes: 80984-WLB/OBS DISCH DAY >30min KARINE REEVES, BELKIS August 05, 2024 11:11 EPIFANIO MACIAS MD August 05, 2024 20:20
== END 2024-08-05 11:00 | DRG 101 ==
LOC: ER 15:47 → ED HOLD 21:11 → EDBEDREQ 23:03 → ORTHO 4S 23:54
PROVIDERS: ADMIT Internal Medicine Pulmonary Disease; ATTEND Internal Medicine
PROC: 4A10X4Z Monitoring of Central Nervous Electrical Activity, External Approach (ICD-10-PCS; principal; 2024-08-02)
DX: R56.9 Unspecified convulsions (principal); E11.9 Type 2 diabetes mellitus without complications; I48.91 Unspecified atrial fibrillation; E78.5 Hyperlipidemia, unspecified; F03.90 Unspecified dementia, unspecified severity, without behavioral disturbance, psychotic disturbance, mood disturbance, and anxiety; F41.9 Anxiety disorder, unspecified; F32.A Depression, unspecified; I50.9 Heart failure, unspecified; K21.9 Gastro-esophageal reflux disease without esophagitis; M54.9 Dorsalgia, unspecified; G89.29 Other chronic pain; Z95.0 Presence of cardiac pacemaker; Z87.11 Personal history of peptic ulcer disease; Z85.46 Personal history of malignant neoplasm of prostate
CPT/HCPCS: 36415; 70450; 70551; 71045; 72170; 80053; 80305; 81001; 83036; 83605; 83735; 83880; 84145; 84146; 85025; 85610; 87081; 92508; 92616; 93306; 95816; 97110; 97116; 97161; 97530; 99285; A6196; A6590; G0378; J7030